=== PATIENT | female | born 1975 | race African-American/Black ===

== ENCOUNTER → 2021-05-22 16:05 | Outpatient (CLI) | payer OTHER, SELFPAY ==
--- NOTE | ~2021-05-22 | MM_ITS ---
EXAMINATION: MM screening [facility] BI w [facility] HISTORY: Screening mammogram TECHNIQUE: Craniocaudal and mediolateral oblique 3-D tomosynthesis images were obtained and synthetic 2-D images were generated. CAD analysis was submitted and interpreted. COMPARISON: 09/19/2015, 01/2018 bilateral screening mammogram examinations BREAST PARENCHYMAL COMPOSITION: The breasts are almost entirely fatty. FINDINGS: There is no evidence of suspicious mass, calcification, or architectural distortion to sugg est malignancy in either breast. There has been no suspicious interval change. IMPRESSION: 1. No mammographic evidence of malignancy. 2. Recommend routine screening mammography in one year. BI-RADS Category 1: Negative Reviewed, dictated and finalized at location A. [employer]
== END ==
PROVIDERS: PCP Internal Medicine; Visit Provider Internal Medicine
DX: Z12.31 Encounter for screening mammogram for malignant neoplasm of breast (principal)
CPT/HCPCS: 77063; 77067

== ENCOUNTER 2021-11-30 11:45 | Outpatient (RCR) | payer OTHER, SELFPAY ==
--- NOTE | 2021-11-07 11:48 | PTOPEVAL ---
PHYSICAL THERAPY INITIAL EVALUATION. Thank you for referring Kiah Castorena to [facility].? The patient is scheduled to be seen for therapy? 2x/week for 4 weeks. Please review, sign, date and return this plan of care RAMON. I agree with and certify that the following plan of care is medically necessary. Referring Physician Date Attending Provider: Salvatore Mcclain ([place]), MD *PT Outpatient Evaluation Start: 11/07/21 Evaluation Information Diagnosis lumbar radiculopathy Onset Chronic, worse in the last year Subjective Information Pt states on September 21 she Query Text:As Reported By Patient/ went to the emergency room Family because she was unable to walk d/t pain. Shes states she also had swelling in her L leg which is unusual for her. About a week after her ER visit she had to use a cane to get around. She states report a history of sharp low back pain but nothing like this prior. Typically she does not have radiating symptoms down her legs. 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 Pain Assessment Lower Back Reported Pain Level 3 Pain Description Dull,Radiating,Sharp,Tightness Pain Frequency Chronic,Intermittent Lowest Pain Intensity 0 Greatest Pain Intensity 5 Lumbar ROM Lumbar Flexion Active Ankle Lumbar Extension (0-40) 30 Lateral Flexion able to reach lateral knee Query Text:Active Hands to: joint line bilaterally - mild discomfort reported with L lateral side bend Lateral Rotation Right (0-45) 45 Lateral Rotation Left (0-45) 45 Lumbar Comments lumbar flexion 8 cm of change lumbar extension 3 cm of change no movement bias with repeated flexion/extension Lower Extremity Range of Motion General Lower Extremity Range of Motion WFL/Left,WFL/Right Lower Extremity Muscle Strength Testing General Lower Extremity Strength WFL/Left,WFL/Right Gross Lower Extremity Strength BLE grossly 4 to 4+/5 gilberto hip abduction 3+/5 gilberto hip extension 3+/5 Posture Posture Evaluation View Posterior
--- NOTE | 2021-11-17 09:01 | PCPTNOTE ---
Patient called & cancelled scheduled appointment this date due to, no reason was given.
--- NOTE | 2021-11-28 10:20 | PCPTNOTE ---
Patient called & cancelled scheduled appointment this date due to having to work.
--- NOTE | 2021-12-05 10:26 | PTOPDC ---
Evaluation Information Assessment Status Discharge - Pt Not Presen Diagnosis low back pain Subjective Information Pt called and cancelled her progress report this date d/t having a flat time. Called patient to follow up on therapy progress. Pt states she is doing well and no longer has pain at rest. She reports only having pain when lifting heavy objects. She states she has learned a lot from therapy and does not feel the need to continue at this time. Reported Pain Level Pain Score 0: Self Report Assessment PT Clinical Summary Kiah has completed 4 visits of skilled therapy at this time. She reports good compliance with her HEP and good improvements in her pain. She will be discharged from skilled therapy services at this time with instruction to continue her HEP and to follow up with her referring provider if needed. Plan of Care PT Services Indicated No Treatment Frequency and to be d/c'ed Duration
--- NOTE | 2021-12-05 10:27 | PCPTNOTE ---
Patient called & cancelled scheduled appointment this date due to having a flat tire.
== END 2021-12-05 13:41 | disposition home or self-care (01) ==
LOC: ANHPT 11:45
PROVIDERS: PCP Internal Medicine; Visit Provider Internal Medicine
DX: M54.16 Radiculopathy, lumbar region (principal)
CPT/HCPCS: 97014; 97110; 97140; 97161; 97530; G0283

== ENCOUNTER → 2023-05-08 11:21 | Outpatient (CLI) | payer OTHER, SELFPAY ==
--- NOTE | ~2023-05-08 | US_ITS ---
Limited Abdominal Sonogram: Real-time sonographic imaging of the right upper quadrant was performed. Clinical History: Fatty liver Findings: The liver appears echogenic, with no evidence of mass lesion or bile duct dilatation. Main portal vein demonstrates normal direction of flow. The gallbladder is well distended, and appears no rmal with no evidence of gallstone or wall thickening. The common bile duct measures 5 mm. The visua lized pancreas, aorta, and IVC are unremarkable. Right kidney measures 10 point centimeters in length , without evidence of hydronephrosis. Impression: Diffuse fatty infiltration of the liver. Reviewed, dictated and finalized at location M. [employer] Impression: Diffuse fatty infiltration of the liver.
== END ==
PROVIDERS: PCP Internal Medicine; Visit Provider Internal Medicine
DX: K76.0 Fatty (change of) liver, not elsewhere classified (principal); Z12.31 Encounter for screening mammogram for malignant neoplasm of breast
CPT/HCPCS: 76705

== ENCOUNTER 2024-01-20 07:46 | Outpatient (CLI) | payer BC, SELFPAY ==
--- NOTE | ~2024-01-20 | MM_ITS ---
EXAMINATION: MM screening [facility] BI w fabian HISTORY: Screening TECHNIQUE: Craniocaudal and mediolateral oblique 3-D tomosynthesis images were obtained and synthetic 2-D images were generated. CAD analysis was submitted and interpreted. COMPARISON: Comparison to multiple prior studies sequentially, with oldest reviewed study dated 06/2013. BREAST PARENCHYMAL COMPOSITION: Not Dense: The breasts are almost entirely fatty. FINDINGS: There is no evidence of suspicious mass, calcification, or architectural distortion to sugg est malignancy in either breast. There has been no suspicious interval change. IMPRESSION: 1. No mammographic evidence of malignancy. 2. Recommend routine screening mammography in one year. BI-RADS Category 1: Negative Reviewed, dictated and finalized at location B.
== END 2024-01-20 07:47 | disposition home or self-care (01) ==
PROVIDERS: PCP Internal Medicine; Visit Provider Internal Medicine
DX: Z12.31 Encounter for screening mammogram for malignant neoplasm of breast (principal)
CPT/HCPCS: 77063; 77067

== ENCOUNTER 2025-01-21 07:41 | Outpatient (CLI) | payer BC, SELFPAY ==
--- NOTE | ~2025-01-21 | MM_ITS ---
EXAMINATION: MM screening [facility] w [facility] HISTORY: Screening TECHNIQUE: Craniocaudal and mediolateral oblique 3-D tomosynthesis images were obtained and synthetic 2-D images were generated. CAD analysis was submitted and interpreted. COMPARISON: Comparison to multiple prior studies sequentially, with oldest reviewed study dated , 02/02/2014 BREAST PARENCHYMAL COMPOSITION: The breasts are almost entirely fatty. FINDINGS: There is no evidence of suspicious mass, calcification, or architectural distortion to suggest malignancy in either breast. IMPRESSION: 1. No mammographic evidence of malignancy. 2. Recommend routine screening mammography in one year. BI-RADS Category 1: Negative Reviewed, dictated and finalized at location B.
== END 2025-01-21 07:42 | disposition home or self-care (01) ==
LOC: MICIMG 07:42
PROVIDERS: PCP Internal Medicine; Visit Provider Internal Medicine
DX: Z12.31 Encounter for screening mammogram for malignant neoplasm of breast (principal)
CPT/HCPCS: 77063; 77067